=== PATIENT | male | born 1980 | race Caucasian/White ===

== ENCOUNTER 2024-12-30 11:32 | Emergency (ER) | payer OTHER, SELFPAY ==
[2024-12-30 11:36] VITALS: BP 111/75
[2024-12-30] MEDS: NSS 1000 IV (12:43)
[2024-12-30] MEDS: ZOFRAN 4 MG IV (12:43)
[2024-12-30 12:45] VITALS: BP 115/83
[2024-12-30 12:50] LABS: % Basophils 0.2 % (0-2); % Eosinophils 0.1 % (0-6); % Immature Granulocytes 0.5 % (0-0.5); % Lymphocytes 9.2 % (20.5-51.1); % Monocytes 7.5 % (1.7-9.3); % Neutrophils 82.5 % (42.2-75.2); Absolute Lymphocytes 0.8 10^3/uL (1.2-3.4); Absolute Monocytes 0.7 10^3/uL (0.1-0.6); Absolute Neutrophils 7.1 10^3/uL (1.4-6.5); Hematocrit 46.4 % (39.0-52.0); Hemoglobin 16.2 g/dL (13.0-18.0); Mean Corp Hgb Conc. 34.9 g/dL (33.0-37.0); Mean Corpuscular Hgb 30.8 pg (27.0-31.0); Mean Corpuscular Volume 88.2 fL (80.0-94.0); Mean Platelet Volume 9.5 fL (7.4-10.4); Nucleated Red Blood Cells % 0 % (-); Platelet Count 208 10^3/uL (130-400); Red Blood Cell Count 5.26 10^6/uL (4.70-6.10); Red Cell Dist. Width 12.5 % (11.5-14.5); White Blood Cell Count 8.6 10^3/uL (4.8-10.8)
--- NOTE | 2024-12-30 12:55 | ED.GENMED ---
History of Present Illness
General
Chief Complaint: Abdominal Symptoms
Time Seen by Provider: 12/30/24 12:06
History of Present Illness
History of Present Illness:
44-year-old male presents to the emergency department for evaluation of intractable nausea and vomiting beginning 2 days ago. Began after eating fish that was prepared at home. Reports diarrhea as well. Generalized abdominal pain, denies fevers
but does have some chills. Prior history of hernia repair and no other intra-abdominal surgeries
Review of Systems
Review of Systems
Allergies reviewed?: Yes
All Other Systems: ROS reviewed and negative except as documented in HPI and ROS
Phy Exam
Physical Exam
Physical Exam:
GEN: Well appearing, NAD, WDWN
HEENT: Oral mucosa moist, no scleral icterus
Cardiac: Regular rate
Lung: No respiratory distress, no tachypnea
Abdomen: Soft, generalized tenderness to all 4 quadrants, no rigidity
MSK: No gross deformity or injuries
Skin: Good color, no pallor or jaundice, no rashes
Neuro: AO x3, moves all extremities freely
Psych: Calm, cooperative
Course
Orders/Labs/Results
Orders:
Orders
12/30/24 12:32
0.9% Sodium Chloride 1000 ml [Nss] 1,000 ml IV BOLUS
Ondansetron Injectable [Zofran] 4 mg IV NOW STA
12/30/24 12:41
Complete Blood Count/With Diff Urgent
Comprehensive Metabolic Panel Urgent
Lipase Urgent
12/30/24 13:39
Metoclopramide [Reglan] 10 mg IV NOW STA
12/30/24 14:06
Diphenhydramine [Benadryl] 25 mg IV NOW STA
Abnormal Lab Results
12/30/24
12:41
Absolute Neuts (auto) 7.1 H 10^3/uL
(1.4-6.5)
Absolute Lymphs (auto) 0.8 L 10^3/uL
(1.2-3.4)
Absolute Monos (auto) 0.7 H 10^3/uL
(0.1-0.6)
Neutrophils % 82.5 H %
(42.2-75.2)
Lymphocytes % 9.2 L %
(20.5-51.1)
Glucose 122 H mg/dl
(70-99)
Total Bilirubin 1.5 H mg/dl
(0.2-1.3)
ALT 65 H U/L
(0-50)
Lipase 20 L U/L
(23-300)
12/30/24 12:41
12/30/24 12:41
Vital Signs
Initial and Last Documented VS:
Initial Vital Signs
Temp Pulse Resp BP Pulse Ox
98 F 104 16 111/75 96
12/30/24 11:36 12/30/24 11:36 12/30/24 11:36 12/30/24 11:36 12/30/24 11:36
Last Documented Vital Signs
Temp Pulse Resp BP Pulse Ox
98 F 104 16 109/75 97
12/30/24 11:36 12/30/24 11:36 12/30/24 11:36 12/30/24 14:00 12/30/24 14:00
MDM/Problems Addressed
MDM/Problems Addressed:
Patient was treated with IV fluids and antiemetics with resolution of symptoms. Able to tolerate p.o. fluids at time of discharge. Has a benign abdominal exam and thus no imaging is indicated at this time
*Critical Care Note
Total Time (30-74mins, 75-104mins- exclusive of procedures): Not Applicable
ED Attending Note
-
Portions of this chart may have been created with voice recognition software.� Occasional wrong word or��sound alike� substitutions may have occurred due to the inherent limitations of voice recognition software.
Discharge Plan
Departure
Patient Disposition: Home (Routine Discharge)
Date of Disposition: 12/30/24
Time of Disposition: 15:29
Patient with high blood pressure during this ER visit?: No
Discharge Problem:
Gastroenteritis
Instructions: Nausea and Vomiting, Adult (DC)
Prescriptions:
New
ondansetron 4 mg tablet,disintegrating
4 mg PO TIDPRN PRN (Reason: nausea/vomiting) Qty: 10 0RF
No Action
Armra Colustrum
1 packet PO NOON
Theragen Tablet
1 tab PO DAILY
pantoprazole 40 mg Tablet,Delayed Release (Dr/Ec)
40 mg PO QPM
Patient Comments:
06/05/23 called [facility] to confirm patient's pantoprazole 40mg filled on 03/21/2020.
no ecw info.
bismuth subsalicylate [Pepto-Bismol] 262 mg/15 mL Suspension
524 mg PO DAILYPRN PRN (Reason: upset stomach)
ibuprofen 200 mg Tablet
200 mg PO Q6HPRN PRN (Reason: mild pain)
ciprofloxacin HCl 500 mg tablet
500 mg PO BID 10 Days Qty: 20 0RF
metronidazole 500 mg tablet
500 mg PO TID 10 Days Qty: 30 0RF
Referrals:
Pcp Selection Not Required, [Other]
NONE,* [Family Provider] -
Interventions
Interventions:
*Risk Screen - Suicide Last Done: 12/30/24 12:42
*General Assessment Last Done: 12/30/24 12:42
*Neglect/Abuse Screening Last Done: 12/30/24 12:42
*ED- Fall Risk Assessment Last Done: 12/30/24 12:42
*ED COVID-19 Vaccine History Last Done: 12/30/24 12:42
*Nursing Disposition Last Done: 12/30/24 15:40
XO-Ezxsje-Bqrqqxfdaa Assessment Last Done: 12/30/24 13:08
Discharge Date and Time
Discharge Date/Time: 12/30/24 15:41
Print Language: [id number]
[2024-12-30 13:00] VITALS: BP 99/76
[2024-12-30 13:08] LABS: ALT (SGPT) 65 U/L (0-50); AST (SGOT) 39 U/L (17-59); Albumin 4.3 g/dl (3.5-5.0); Alkaline Phosphatase 53 U/L (38-126); Blood Urea Nitrogen 20 mg/dl (9-20); Calcium 8.4 mg/dl (8.4-10.2); Carbon Dioxide 28 mmol/L (22-30); Chloride 101 mmol/L (98-107); Glucose 122 mg/dl (70-99); Lipase 20 U/L (23-300); Potassium 4.3 mmol/L (3.5-5.1); Sodium 136 mmol/L (135-145); Total Bilirubin 1.5 mg/dl (0.2-1.3); Total Protein 7.2 g/dl (6.3-8.2); eGFR > 60.00
[2024-12-30] MEDS: REGLAN 10 MG IV (13:53)
[2024-12-30 14:00] VITALS: BP 109/75
[2024-12-30] MEDS: BENADRYL 25 MG IV (14:10)
== END 2024-12-30 15:41 | disposition home or self-care (01) ==
LOC: EMR 11:32
PROVIDERS: Physician Assistant; EMERGENCY PHYSICIAN Emergency Medicine
DX: K52.9 Noninfective gastroenteritis and colitis, unspecified (principal)
CPT/HCPCS: 99284; 96374; 96375 ×2; 96361; 80053; 83690; 85025